=== PATIENT | male | born 1985 | race Caucasian/White ===

== ENCOUNTER 2017-06-20 09:15 | Emergency (ER) | payer OTHER ==
--- NOTE | 2017-06-20 09:39 | EDPHY ---
General Time Seen by Provider: 06/20/17 09:28 Narrative: CHIEF COMPLAINT: Slammed right index finger in car door, lacerations HISTORY OF PRESENT ILLNESS: Patient complains of pain in the right index finger after accidentally slamming finger in a car door. This happened within the past hour. The door did completely close the latch. Immediately open the door. Sudden onset of severe pain in the area with lacerations on the volar and dorsal aspects of the finger. Minimal bleeding that stopped with pressure. Some tingling of the finger. No numbness. No weakness. No pain in any of the location of the right hand or fingers. He is able to bend straighten the finger. No other associated complaints or modifying factors. TIME OF INJURY: Less than 1 hr prior to arrival TETANUS STATUS: Less than 4 years ago MEDICAL/SURGICAL/SOCIAL HISTORY: Uncomplicated medical history. Lives and works here independently. Nonsmoker. REVIEW OF SYSTEMS: Ten systems reviewed and are negative unless otherwise noted in the HPI EXAMINATION General Appearance: Alert, no distress Head: normocephalic, atraumatic Cardiovascular: Symmetric radial pulses. Brisk cap refill in the right index finger. Neurological: A&O, sensory symmetric, interossei strength symmetric. Beauty Sales Advisor strength symmetric. Skin: Warm and dry, no rash. Superficial lacerations over the right in his finger involving the volar aspect over the middle phalanx and dorsal aspect over the proximal phalanx. No bleeding. No exposure of the underlying tendon. Extremities: Tenderness of the right index finger at all 3 phalanges. Normal flexion-extension including superficialis and profundus. DIFFERENTIAL DIAGNOSES: Including but not limited to crush injury, tuft fracture, open fracture, closed fracture, laceration, superficial laceration MDM: 9:40 a.m. Crush injury to right finger with superficial lacerations. Dried blood obscures the view, thus I have administered a digital block and we will irrigate and re-evaluate the wounds. X-ray has been ordered. His tetanus is up -to-date. 10:10 a.m. Patient re-evaluated. The wounds have been irrigated and I do not appreciate any wounds that will require suture repair. These are 1 cm superficial lacerations in both area. I reviewed the x-ray and I do not appreciate any fracture. He will be placed in a dressing and a splint to be in place for 2-3 days. We discussed ED precautions, ice, elevation, anti-inflammatories. He is comfortable this plan and discharged home stable condition. SUPERVISION: This patient was independently evaluated without direct involvement of or examination by the attending physician. ED Precautions: Worsening pain. Erythema, edema, cyanosis, pallor, paresthesia or anesthesia. - Diagnostics Imaging Results: Imaging Impressions Finger X-Ray 06/20/17 09:38 Impression: Negative. No acute fracture. - History Smoking Status: Never smoked - Objective Vital Signs: Initial Vital Signs Temperature (C) 97.9 F 06/20/17 09:17 Heart Rate 107 H 06/20/17 09:17 Respiratory Rate 18 06/20/17 09:17 Blood Pressure 129/74 H 06/20/17 09:17 O2 Sat (%) 94 06/20/17 09:17 O2 Delivery Mode Room Air Allergies/Adverse Reactions: No Known Allergies Allergy (Unverified 06/20/17 09:17) Home Medications: Medication Instructions Recorded NK [No Known Home Meds] 06/20/17 Departure - Departure Disposition: Home, Routine, Self-Care Clinical Impression: Crushing injury of right index finger, initial encounter, Superficial laceration Condition: Good Instructions: Finger Laceration (ED), Crush Injury (ED) Additional Instructions: 1. Thin layer of bacitracin to the affected lacerations daily for 3-5 days 2. Finger splint for 3-5 days 3. Follow up with hand surgeon for any ongoing pain 4. ED precautions for worsening pain, numbness, tingling, weakness, difficulty bending or straightening the finger Referrals: Noel Matt MD [Medical Doctor] - As per Instructions
[2017-06-20 10:34] VITALS: BP 127/71
== END 2017-06-20 10:34 | disposition home or self-care (01) ==
DX: S61.210A Laceration without foreign body of right index finger without damage to nail, initial encounter (principal); W23.0XXA Caught, crushed, jammed, or pinched between moving objects, initial encounter